=== PATIENT | female | born 1950 | race Hispanic/Latino ===

== ENCOUNTER → 2020-02-17 | Outpatient (CLI) | payer MEDICARE ==
[~2020-02-17] VITALS: Ht 157.5 cm; Wt 95.3 kg
[~2020-02-17] MED LIST: AMIT50TA3 PO; CITA-106 PO; CLINDAMYCIN 600 MG/D5% WATER 50 ML IV SCH; FLUT44HFA IH; GABA600T10 PO; LACTATED RINGERS 1000ML 1,000 ML IV SCH; METF-446 PO; PROP40TA7 PO; QUIN1TAB25 PO; SUMA100T16 PO; TOPI50TA24 PO; TRAM50TA4 PO
--- NOTE | 2020-02-17 16:25 | NUR ---
Pt symptomatic Pt here for preop lab work. Pt states having cough, congestion and chills. Pt had a negative covid PCR on 02/12/2020. Dr. Barrera was made aware and stated ok to proceed with surgery. Dr. Mi also made aware. Ordered to do a rapid covid and repeat PCR. Orders noted.
[2020-02-17 16:57] VITALS: BP 183/83
[2020-02-17 17:05] LABS: EOSINOPHILS % (AUTO) 4.6 % (0.0-8.0); HEMATOCRIT 40.2 % (36-48); LYMPHOCYTES % (AUTO) 39.5 % (21.0-51.0); MEAN CORPUSCULAR HEMOGLOBIN 31.4 pg (27.0-33.0); MEAN CORPUSCULAR HGB CONC 31.8 g/dL (32.0-36.0); MEAN CORPUSCULAR VOLUME 98.5 fL (79-99); MONOCYTES % (AUTO) 6.7 % (3.0-13.0); NEUTROPHILS % (AUTO) 47.8 % (40.0-77.0); PLATELET COUNT (AUTO) 304 K/uL (130-400); RED BLOOD CELL COUNT(AUTO) 4.08 MIL/uL (4.00-5.50); RED CELL DISTRIBUTION WIDTH 12.4 % (11.0-15.5); WHITE BLOOD COUNT (AUTO) 9.3 K/uL (4.8-10.8)
--- NOTE | 2020-02-17 18:30 | NUR ---
SURGERY: NOTIFIED MIGUEL RODGERS RN [employer] NOTIFIED OF PATIENT CANCELLING SURGERY FOR TOMORROW AND PT WILL CALL DR. PALACIOS OFFICE FIRST THING IN THE MORNING TO RESCHEDULE.
== END | disposition home or self-care (01) ==
LOC: DAH 10:00 → EDSTATUS 02-18 12:00
PROVIDERS: ATTEND Obstetrics & Gynecology
DX: Z20.828 Contact with and (suspected) exposure to other viral communicable diseases (principal); N89.8 Other specified noninflammatory disorders of vagina; N39.498 Other specified urinary incontinence; N94.10 Unspecified dyspareunia
CPT/HCPCS: 36415; 85025; 86850; 86900; 86901; 87426; C9803 ×2; U0003 ×2

== ENCOUNTER → 2022-10-06 | Outpatient (CLI) | payer OTHER ==
[~2022-10-06] MED LIST changes: -CLINDAMYCIN 600 MG/D5% WATER 50 ML IV SCH; -LACTATED RINGERS 1000ML 1,000 ML IV SCH; +QUIN1TAB16 PO; -QUIN1TAB25 PO; +TOPI-255 PO; -TOPI50TA24 PO
== END | disposition home or self-care (01) ==
LOC: RAH 10:03
PROVIDERS: ATTEND Physical Medicine & Rehabilitation
DX: M43.16 Spondylolisthesis, lumbar region (principal); M47.812 Spondylosis without myelopathy or radiculopathy, cervical region
CPT/HCPCS: 72050; 72114

== ENCOUNTER → 2024-10-08 | Outpatient (CLI) | payer OTHER ==
[~2024-10-08] MED LIST changes: +GABA-1405 PO; -GABA600T10 PO; -TOPI-255 PO; +TOPI-97 PO
--- NOTE | 2024-10-08 16:06 | HMCIMG ---
CT calcium scoring Clinical Information: SCREENING Comparison: None CT Dose Index (CTDI): 13.30 mGy Dose Length Product (DLP): 186.18 total mGy-cm Findings: Calcium score 14.7. Mild calcification. The CT scan is not a complete chest CT. Covered portion is reviewed for incidental findings. No incidental findings seen. IMPRESSION: Calcium score as above. Calcium score reference stable: 0: No identifiable calcification 1- 10: Minimal identifiable calcification 11-100: Mild calcification 101- 400: Moderate calcification 401 and above: Significant calcification Automated exposure control and adequate statistical iterative reconstructions were utilized as dose reduction techniques.
== END | disposition home or self-care (01) ==
LOC: RAH 14:03
PROVIDERS: ATTEND Family Medicine
DX: Z13.6 Encounter for screening for cardiovascular disorders (principal); I51.5 Myocardial degeneration
CPT/HCPCS: 75571